=== PATIENT | female | born 1990 | race Caucasian/White ===

== ENCOUNTER 2018-11-02 10:18 | Inpatient (IN) | payer MEDICAID ==
[2018-11-02] MEDS ORDERED: DEXTROSE 5%-LR 1,000 ML IV (10:55)
[2018-11-02] MEDS ORDERED: LACTATED RINGER'S 1,000 ML IV ×2 (10:55)
[2018-11-02] MEDS ORDERED: MINERAL OIL LIGHT 10 ML VIAL TOP (11:00)
[2018-11-02] MEDS ORDERED: LIDOCAINE 1% (MPF) 30 ML INJ INJ (11:00)
[2018-11-02] MEDS ORDERED: OXYTOCIN 30 UNITS/LR 500 ML IV (11:00)
[2018-11-02] MEDS ORDERED: MISOPROSTOL 200 MCG TAB PR (11:00)
[2018-11-02] MEDS ORDERED: METHYLERGONOVINE 0.2 MG INJ IM (11:00)
[2018-11-02] MEDS ORDERED: CARBOPROST 250 MCG INJ IM (11:00)
[2018-11-02 11:54] LABS: ADD MAN DIFF? NO
[2018-11-02 12:00] LABS: BASOPHILS % 0.3 % (0.0-2.0); EOSINOPHILS % 0.5 % (0.0-7.0); HEMATOCRIT 32.4 % (37.0-47.0); HEMOGLOBIN 10.6 g/dl (12.0-16.0); LYMPHOCYTES # 1.5 10^3/ul (0.8-2.9); LYMPHOCYTES % 19.5 % (15.0-51.0); MEAN CORPUSCULAR HEMOGLOBIN 27.6 pg (29.0-33.0); MEAN CORPUSCULAR HGB CONC 32.7 g/dl (32.0-37.0); MEAN CORPUSCULAR VOLUME 84.4 fl (82.0-101.0); MONOCYTE # 0.5 10^3/ul (0.3-0.9); MONOCYTES % 6.5 % (0.0-11.0); NEUTROPHIL # 5.6 10^3/ul (1.6-7.5); NEUTROPHILS % 72.7 % (39.0-77.0); PLATELET COUNT 180 10^3/UL (140-415); RED BLOOD COUNT 3.84 10^6/ul (4.20-5.40); RED CELL DISTRIBUTION WIDTH 13.3 % (11.5-14.5)
[2018-11-02 12:00] LABS: WHITE BLOOD COUNT 7.6 10^3/ul (4.8-10.8)
[2018-11-02 12:22] LABS: GLUCOSE 90 mg/dl (70-220)
[2018-11-02 12:31] LABS: INR 0.98; PROTIME 13.1 Sec (11.9-14.9)
[2018-11-02 12:32] LABS: PARTIAL THROMBOPLASTIN TIME 27.6 Sec (23.0-35.0)
[2018-11-02 12:55] LABS: HEPATITIS B SURFACE ANTIGEN NEGATIVE (NEGATIVE)
[2018-11-02] MEDS ORDERED: GLUCAGON 1 MG INJ IM (13:30)
[2018-11-02] MEDS ORDERED: GLUCOSE GEL 15 GRAM TUBE PO ×2 (13:30)
[2018-11-02] MEDS ORDERED: GLUCOSE GEL 15 GRAM TUBE BUCCAL (13:30)
[2018-11-02] MEDS ORDERED: DEXTROSE 50% 50 ML SYRINGE IV ×2 (13:30)
[2018-11-02] MEDS: MISOPROSTOL 50 MCG CAPSULE PO ×2 (13:55→19:45)
[2018-11-02] MEDS: AMPICILLIN 2 GM/NS (PMX) 100 ML IV (13:56)
[2018-11-02] MEDS: LACTATED RINGER'S 1,000 ML IV ×2 (13:56→16:31)
[2018-11-02 14:58] LABS: RAPID PLASMA REAGIN NONREACTIVE (NR)
[2018-11-02] MEDS ORDERED: INSULIN REGULAR, HUMAN 100 UNIT/1 ML 3ML VIAL SC (17:05)
[2018-11-02] MEDS: AMPICILLIN 1 GM/NS (PMX) 50 ML IV ×2 (18:05→22:24)
[2018-11-02] MEDS: INSULIN REGULAR, HUMAN 100 UNIT/1 ML 3ML VIAL SC (18:13)
[2018-11-02] MEDS ORDERED: NPH, HUMAN INSULIN ISOPHANE 3ML VIAL SC (21:00)
[2018-11-02] MEDS: NPH, HUMAN INSULIN ISOPHANE 3ML VIAL SC (23:27)
[2018-11-03] MEDS: AMPICILLIN 1 GM/NS (PMX) 50 ML IV ×5 (02:31→20:27)
[2018-11-03] MEDS: MISOPROSTOL 50 MCG CAPSULE PO ×4 (04:03→20:05)
[2018-11-03] MEDS: LACTATED RINGER'S 1,000 ML IV ×3 (04:05→23:16)
[2018-11-03] MEDS ORDERED: INSULIN REGULAR, HUMAN 100 UNIT/1 ML 3ML VIAL SC (07:05)
[2018-11-03] MEDS: INSULIN REGULAR, HUMAN 100 UNIT/1 ML 3ML VIAL SC ×2 (08:28→17:54)
[2018-11-03] MEDS: NPH, HUMAN INSULIN ISOPHANE 3ML VIAL SC ×2 (08:29→22:01)
[2018-11-03] MEDS ORDERED: MISOPROSTOL 50 MCG CAPSULE PO (15:00)
[2018-11-04] MEDS: AMPICILLIN 1 GM/NS (PMX) 50 ML IV ×5 (00:04→21:08)
[2018-11-04] MEDS: OXYTOCIN 30 UNITS/LR 500 ML IV ×2 (00:07→23:35)
[2018-11-04] MEDS: DEXTROSE 5%-LR 1,000 ML IV ×3 (05:36→20:52)
[2018-11-04] MEDS ORDERED: OXYTOCIN 30 UNITS/LR 500 ML BAG IV (10:50)
[2018-11-04] MEDS ORDERED: PHENYLephrine (100 MCG/ML) 10ML SYG (10:50)
[2018-11-04] MEDS: LACTATED RINGER'S 1,000 ML IV ×3 (11:00→20:39)
[2018-11-04] MEDS: BUTORPHANOL 2 MG INJ IV (17:35)
[2018-11-04] MEDS ORDERED: HYDROmorphONE 0.5 MG/0.5 ML SYG IV (18:00)
[2018-11-04] MEDS ORDERED: DIPHENHYDRAMINE 50 MG INJ IV (18:00)
[2018-11-04] MEDS ORDERED: ONDANSETRON 4 MG INJ IV (18:00)
[2018-11-04] MEDS ORDERED: FENTAnyl 2MCG/ML-ROPIV 0.2% 100 ML BAG EPI (18:00)
[2018-11-04] MEDS ORDERED: NALOXONE (0.4 MG/ML) INJ IV (18:00)
[2018-11-04] MEDS ORDERED: CHLOROPROCAINE 3% (MPF) 20 ML INJ (22:50)
[2018-11-04] MEDS ORDERED: morphine SULFATE/PF (10 MG/10 ML) INJ (22:50)
[2018-11-04] MEDS ORDERED: ONDANSETRON 4 MG INJ (23:00)
[2018-11-04] MEDS: AZITHROMYCIN 500MG/NS (PMX) 250 ML IV (23:33)
[2018-11-04] MEDS: CEFAZOLIN 2 GM/50 ML (PMX) 50 ML IVPB (23:34)
[2018-11-05] MEDS ORDERED: HYDROmorphONE 1 MG/5 ML IV SYRINGE IV ×3
[2018-11-05] MEDS ORDERED: ONDANSETRON 4 MG INJ IV
[2018-11-05] MEDS ORDERED: ALBUTEROL 0.083% (NEB) 2.5 MG/3 ML AMP HHN
[2018-11-05] MEDS ORDERED: DIPHENHYDRAMINE 50 MG INJ IV
[2018-11-05] MEDS ORDERED: NA PHOSPHATE/BIPHOS 133 ML ENEMA PR
[2018-11-05] MEDS ORDERED: METOCLOPRAMIDE 10 MG INJ IV
[2018-11-05] MEDS ORDERED: KETOROLAC 30 MG INJ IV
[2018-11-05] MEDS ORDERED: FENTAnyl 50 MCG/ML VIAL IV ×2
[2018-11-05] MEDS ORDERED: MISOPROSTOL 200 MCG TAB PR
[2018-11-05] MEDS: HYDROmorphONE 0.5 MG/0.5 ML SYG IV ×2 (00:12→17:27)
[2018-11-05] MEDS: OXYTOCIN 30 UNITS/LR 500 ML IV (00:41)
[2018-11-05] MEDS: FENTAnyl 50 MCG/ML VIAL IV (00:50)
[2018-11-05] MEDS: KETOROLAC 30 MG INJ IV ×3 (01:44→12:22)
[2018-11-05] MEDS: DEXTROSE 5%-LR 1,000 ML IV ×3 (04:52→20:52)
[2018-11-05] MEDS: LACTATED RINGER'S 1,000 ML IV ×3 (05:07→23:30)
[2018-11-05 06:48] LABS: WHITE BLOOD COUNT 11.5 10^3/ul (4.8-10.8)
[2018-11-05 06:48] LABS: ADD MAN DIFF? NO; BASOPHILS % 0.2 % (0.0-2.0); HEMATOCRIT 28.5 % (37.0-47.0); HEMOGLOBIN 9.4 g/dl (12.0-16.0); LYMPHOCYTES # 0.9 10^3/ul (0.8-2.9); LYMPHOCYTES % 8.1 % (15.0-51.0); MEAN CORPUSCULAR HEMOGLOBIN 27.6 pg (29.0-33.0); MEAN CORPUSCULAR VOLUME 83.6 fl (82.0-101.0); MEAN PLATELET VOLUME 12.4 fl (7.4-10.4); MONOCYTE # 0.6 10^3/ul (0.3-0.9); MONOCYTES % 5.2 % (0.0-11.0); NEUTROPHIL # 9.9 10^3/ul (1.6-7.5); NEUTROPHILS % 86.2 % (39.0-77.0); PLATELET COUNT 163 10^3/UL (140-415); RED BLOOD COUNT 3.41 10^6/ul (4.20-5.40); RED CELL DISTRIBUTION WIDTH 13.3 % (11.5-14.5)
[2018-11-05 07:13] LABS: HEMOGLOBIN A1C 5.7 % (0-5.9)
[2018-11-05] MEDS: LANOLIN HPA 1 PKT TOP (08:52)
[2018-11-05] MEDS: metFORMIN (XR) 500 MG TAB PO (08:53)
[2018-11-05] MEDS: SENNA/DOCUSATE NA (8.6MG/50MG) TAB PO ×2 (09:00→21:23)
[2018-11-05] MEDS: IBUPROFEN 600 MG TAB PO ×2 (18:00→19:25)
[2018-11-05] MEDS: ACCU-CHEK XX (21:15)
[2018-11-05] MEDS: OXYCODONE/ACETAMINOPHEN (5/325) TAB PO (21:23)
[2018-11-06] MEDS: IBUPROFEN 600 MG TAB PO ×4 (01:16→17:51)
[2018-11-06] MEDS: DEXTROSE 5%-LR 1,000 ML IV ×3 (04:52→20:52)
[2018-11-06] MEDS: OXYCODONE/ACETAMINOPHEN (5/325) TAB PO ×2 (06:35→12:10)
[2018-11-06] MEDS: LACTATED RINGER'S 1,000 ML IV ×3 (07:30→23:30)
[2018-11-06] MEDS: ACCU-CHEK XX ×3 (07:41→20:05)
[2018-11-06] MEDS: metFORMIN (XR) 500 MG TAB PO (09:14)
[2018-11-06] MEDS: SENNA/DOCUSATE NA (8.6MG/50MG) TAB PO ×2 (09:14→21:23)
[2018-11-07] MEDS: IBUPROFEN 600 MG TAB PO ×3 (00:09→12:28)
[2018-11-07] MEDS: ACCU-CHEK XX ×2 (08:06→10:52)
[2018-11-07] MEDS: metFORMIN (XR) 500 MG TAB PO (08:37)
[2018-11-07] MEDS: SENNA/DOCUSATE NA (8.6MG/50MG) TAB PO (08:37)
[2018-11-07] MEDS: DIPHTH/TET/ACEL PERTUSS (ADULT) 0.5 ML VIAL IM* (09:00)
[2018-11-07] MEDS: MEASLES,MUMPS,RUBELLA VACCINE INJ SC* (09:00)
== END 2018-11-07 13:55 | disposition home or self-care (01) | DRG 788 ==
LOC: L-D 10:18 → PP1 11-05 02:22 → L-D 10:51
PROVIDERS: Specialist
PROC: 0U7C7ZZ Dilation of Cervix, Via Natural or Artificial Opening (ICD-10-PCS; 2018-11-03)
PROC: 10D00Z1 Extraction of Products of Conception, Low, Open Approach (ICD-10-PCS; principal; 2018-11-04)
DX: O24.12 Pre-existing type 2 diabetes mellitus, in childbirth (principal); E11.9 Type 2 diabetes mellitus without complications; O36.63X0 Maternal care for excessive fetal growth, third trimester, not applicable or unspecified; O62.1 Secondary uterine inertia; O99.214 Obesity complicating childbirth; E66.9 Obesity, unspecified; Z3A.38 38 weeks gestation of pregnancy; Z37.0 Single live birth; Z79.4 Long term (current) use of insulin
CPT/HCPCS: 62322; 76815; 82947; 82962; 83036; 85025; 85610; 85730; 86592; 86850; 86900; 86901; 87340; 99464; J2400